=== PATIENT | female | born 1990 | race Caucasian/White ===

== ENCOUNTER 2016-12-15 12:59 | Emergency (ER) | payer SELFPAY ==
[2016-12-15 13:30] VITALS: BP 110/64
--- NOTE | 2016-12-15 15:07 | UC ---
Hand/Wrist HPI - HPI Summary HPI Summary: Has left hand pain after punching a wall. - History Of Current Complaint Chief Complaint: UCUpperExtremity Stated Complaint: LEFT HAND INJURY Time Seen by Provider: 12/15/16 15:01 Hx Obtained From: Patient Hx Last Menstrual Period: 12/12/16 ?: No Onset/Duration: Sudden Onset, Lasting Hours - 1, Still Present Severity Initially: Moderate Severity Currently: Moderate Character Of Pain: Dull, Aching Aggravating Factor(s): Movement, Lifting Alleviating Factor(s): Rest Associated Signs And Symptoms: Positive: Swelling, Numbness/Tingling - at the finger tips. Related History: Dominant Hand Right - Allergies/Home Medications Allergies/Adverse Reactions: Allergies Allergy/AdvReac Type Severity Reaction Status Date / Time Sulfa Antibiotics Allergy Hives Verified 12/15/16 13:30 PMH/Surg Hx/FS Hx/Imm Hx Previously Healthy: Yes - Surgical History Surgical History: Yes Surgery Procedure, Year, and Place: cholecystectomy. nasal - Family History Known Family History: Positive: Cardiac Disease, Diabetes Negative: Hypertension - Social History Occupation: Employed Full-time Lives: With Family Alcohol Use: None Substance Use Type: None Smoking Status (MU): Heavy Every Day Tobacco Smoker Type: Cigarettes Amount Used/How Often: 1/4 pack daily Length of Time of Smoking/Using Tobacco: 10 YRS Have You Smoked in the Last Year: Yes Cessation Counseling: Patient Advised to Stop Review of Systems Musculoskeletal: Arthralgia Neurological: Numbness Is Patient Immunocompromised?: No All Other Systems Reviewed And Are Negative: Yes Physical Exam Triage Information Reviewed: Yes Appearance: Well-Appearing, No Pain Distress, Well-Nourished Vital Signs: Initial Vital Signs Temp 97.9 F 12/15/16 13:25 Pulse 74 12/15/16 13:25 Resp 16 12/15/16 13:25 BP 110/64 12/15/16 13:25 Pulse Ox 99 12/15/16 13:25 Vital Signs Reviewed: Yes Eyes: Positive: Conjunctiva Clear Neck exam: Normal Respiratory Exam: Normal Cardiovascular Exam: Normal Musculoskeletal: Positive: Strength Limited @ - left hand, ROM Limited @ - left 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
--- NOTE | 2016-12-15 15:34 | RAD ---
HISTORY: Left hand trauma COMPARISONS: None VIEWS: 4, Frontal, lateral, and oblique views of the left hand FINDINGS: BONE DENSITY: Normal. BONES: There is no displaced fracture. JOINTS: There is no arthropathy. ALIGNMENT: There is no dislocation. SOFT TISSUES: Unremarkable. OTHER FINDINGS: None. IMPRESSION: NO ACUTE OSSEOUS INJURY. IF SYMPTOMS PERSIST, RECOMMEND REPEAT IMAGING.
== END 2016-12-15 15:24 | disposition home or self-care (01) ==
LOC: UCCORT 12:59
DX: S60.222A Contusion of left hand, initial encounter (principal); F17.210 Nicotine dependence, cigarettes, uncomplicated; W22.09XA Striking against other stationary object, initial encounter; Z88.1 Allergy status to other antibiotic agents
CPT/HCPCS: 99212; G0463

== ENCOUNTER 2017-08-13 10:10 | Emergency (ER) | payer BC ==
[2017-08-13 10:46] VITALS: BP 114/75
--- NOTE | 2017-08-13 11:12 | UC ---
Throat Pain/Nasal Jose HPI - HPI Summary HPI Summary: Left tonsil red swollen with purulence , some fatigue, body aches, headache. No known illness exposures - History of Current Complaint Hx Obtained From: Patient Hx Last Menstrual Period: 07/24/17 ?: No Onset/Duration: Sudden Onset, Lasting Days - 4, Still Present Pain Intensity: 4 Pain Scale Used: 0-10 Numeric Cough: Nonproductive <Josefina Watson - Last Filed: 08/13/17 11:15> <Shannon Horvath - Last Filed: 08/13/17 13:26> - History of Current Complaint Chief Complaint: UCRespiratory Stated Complaint: SORE THROAT FEVER HEADACHE Time Seen by Provider: 08/13/17 10:54 - Allergies/Home Medications Allergies/Adverse Reactions: Allergies Allergy/AdvReac Type Severity Reaction Status Date / Time adhesive Allergy Blisters Verified 08/13/17 10:47 Sulfa (Sulfonamide Allergy Hives Verified 08/13/17 10:47 Antibiotics) PMH/Surg Hx/FS Hx/Imm Hx Previously Healthy: Yes - Surgical History Surgical History: Yes Surgery Procedure, Year, and Place: cholecystectomy. nasal - Family History Known Family History: Positive: None, Cardiac Disease, Diabetes Negative: Hypertension - Social History Occupation: Employed Full-time Lives: With Family Alcohol Use: Rare Substance Use Type: None Smoking Status (MU): Light Every Day Tobacco Smoker Type: Cigarettes Amount Used/How Often: 1/4 pack daily Length of Time of Smoking/Using Tobacco: 10 YRS Have You Smoked in the Last Year: Yes <Josefina Watson - Last Filed: 08/13/17 11:15> Review of Systems Constitutional: Chills, Fatigue Skin: Negative Eyes: Negative ENT: Sore Throat Respiratory: Negative Cardiovascular: Negative Gastrointestinal: Negative Genitourinary: Negative Motor: Negative Neurovascular: Negative Musculoskeletal: Negative Neurological: Headache Psychological: Negative Is Patient Immunocompromised?: No All Other Systems Reviewed And Are Negative: Yes <Josefina Watson - Last Filed: 08/13/17 11:15> Physical Exam Triage Information Reviewed: Yes Appearance: Well-Appearing, No Pain Distress, Well-Nourished Vital Signs: Initial Vital Signs Temp 98.5 F 08/13/17 10:42 Pulse 89 08/13/17 10:42 Resp 18 08/13/17 10:42 BP 114/75 08/13/17 10:42 Pulse Ox 98 08/13/17 10:42 Vital Signs Reviewed: Yes Eye Exam: Normal Eyes: Positive: Conjunctiva Clear ENT Exam: Normal ENT: Positive: Normal ENT inspection, Hearing grossly normal, Pharynx normal, TMs normal, Tonsillar swelling - left, Tonsillar exudate, Uvula midline. Negative: Nasal congestion, Hoarse voice, Dental tenderness, Sinus tenderness Dental Exam: Normal Neck exam: Normal Neck: Positive: Supple, Nontender Respiratory Exam: Normal Respiratory: Positive: Chest non-tender, Lungs clear, Normal breath sounds, No respiratory distress, No accessory muscle use Cardiovascular Exam: Normal Cardiovascular: Positive: RRR, No Murmur, Pulses Normal, Brisk Capillary Refill Musculoskeletal Exam: Normal Musculoskeletal: Positive: Strength Intact, ROM Intact, No Edema Neurological Exam: Normal Neurological: Positive: Alert, Muscle Tone Normal Psychological Exam: Normal Skin Exam: Normal <Josefina Watson - Last Filed: 08/13/17 11:15> Vital Signs: Initial Vital Signs Temp 98.5 F 08/13/17 10:42 Pulse 89 08/13/17 10:42 Resp 18 08/13/17 10:42 BP 114/75 08/13/17 10:42 Pulse Ox 98 08/13/17 10:42 <Shannon Horvath - Last Filed: 08/13/17 13:26> Diagnostics - Laboratory Diagnostic Studies Completed/Ordered: RST (-) <Josefina Watson - Last Filed: 08/13/17 11:15> Throat Pain/Nasal Course/Dx - Course Assessment/Plan: Clindamycin, Tylenol ibuprofen, warm gargles, follow with the care clinic her PCP as needed recheck when necessary - Differential Dx/Diagnosis Provider Diagnoses: Tonsillitis, nicotine dependence <Josefina Watson - Last Filed: 08/13/17 11:15> Discharge - Sign-Out/Discharge Documenting (check all that apply): Discharge/Admit/Transfer - Billing Disposition and Condition Condition: STABLE Disposition: Home <Josefina Watson Last Filed: 08/13/17 11:15> - Billing Disposition and Condition Condition: STABLE Disposition: Home <Shannon Horvath - Last Filed: 08/13/17 13:26> - Discharge Plan Condition: Stable Disposition: HOME Prescriptions: Clindamycin Cap(NF) [Clindamycin Cap 300 mg Cap(NF)] 300 mg PO TID #30 cap Patient Education Materials: Tonsillitis (ED) Referrals: [facility] [Outside] - If Needed [facility] [Outside] - If Needed Attestation Statement User Type: Provider - I was available for consult. This patient was seen by the PAU. The patient was not presented to, seen by, or examined by me. -Shelbi <Shannon Horvath - Last Filed: 08/13/17 13:26>
== END 2017-08-13 11:20 | disposition home or self-care (01) ==
LOC: UCEAST 10:10
DX: J03.90 Acute tonsillitis, unspecified (principal); F17.210 Nicotine dependence, cigarettes, uncomplicated; R53.83 Other fatigue; Z88.2 Allergy status to sulfonamides; Z91.09 Other allergy status, other than to drugs and biological substances
CPT/HCPCS: 87651; 99212; G0463

== ENCOUNTER 2017-09-01 15:51 | Emergency (ER) | payer BC ==
[2017-09-01 16:10] VITALS: BP 131/87
--- NOTE | 2017-09-01 17:23 | UC ---
Medardo Figueroa Elizabeth, scribed for Amado Phillips MD on 09/01/17 at 1612 . Throat Pain/Nasal Jose HPI - HPI Summary HPI Summary: This patient is a 26 year old F presenting to [facility] with a chief complaint of chest congestion since 3 days ago. The patient rates the pain 6/10 in severity. Symptoms aggravated by nothing. Symptoms alleviated by nothing. Patient reports productive cough with yellowish sputum, sore throat, and sinus pressure Patient denies wheezing. The patient notes that she recently had tonsillitis and just finished 14 days of abx 4 days ago. She says she felt better for a day after the abx ended but then started feeling unwell again. - History of Current Complaint Stated Complaint: CHEST CONGESTION Time Seen by Provider: 09/01/17 16:02 Hx Obtained From: Patient Hx Last Menstrual Period: 07/24/17 Onset/Duration: Gradual Onset, Lasting Days - 3 days, Still Present Severity: Mild Pain Intensity: 6 Pain Scale Used: 0-10 Numeric Cough: Sputum Appears - yellowish Associated Signs & Symptoms: Positive: Sinus Discomfort - Allergies/Home Medications Allergies/Adverse Reactions: Allergies Allergy/AdvReac Type Severity Reaction Status Date / Time adhesive Allergy Blisters Verified 08/13/17 10:47 Sulfa (Sulfonamide Allergy Hives Verified 08/13/17 10:47 Antibiotics) PMH/Surg Hx/FS Hx/Imm Hx Other Respiratory History: no hx of asthma - Surgical History Surgical History: Yes Surgery Procedure, Year, and Place: cholecystectomy. nasal - Family History Known Family History: Positive: None, Cardiac Disease, Diabetes, Other - asthma Negative: Hypertension Family History: asthma - Social History Alcohol Use: Rare Substance Use Type: None Smoking Status (MU): Light Every Day Tobacco Smoker Type: Cigarettes Amount Used/How Often: 1/4 pack daily Length of Time of Smoking/Using Tobacco: 10 YRS Have You Smoked in the Last Year: Yes Review of Systems ENT: Sore Throat, Sinus Congestion Respiratory: Negative - negative wheezing, Cough Cardiovascular: Other - chest congestion Neurological: Negative - negative headache All Other Systems Reviewed And Are Negative: Yes Physical Exam - Summary Physical Exam Summary: General: well-appearing, no pain distress Skin: warm, color reflects adequate perfusion, dry Head: normal Eyes: EOMI, CASSY ENT: positive rhinorrhea, positive pharynx erythema Neck: nontender, positive anterior cervical lymphadenopathy Respiratory: CTA, breath sounds present Cardiovascular: RRR Abdomen: soft, nontender Bowel: present Musculoskeletal: normal, strength/ROM intact Neurological: sensory/motor intact, A&O x3 Psychological: affect/mood appropriate Triage Information Reviewed: Yes Vital Signs: Initial Vital Signs Temp 97.4 F 09/01/17 16:02 Pulse 84 09/01/17 16:02 Resp 16 09/01/17 16:02 BP 131/87 09/01/17 16:02 Pulse Ox 99 09/01/17 16:02 Vital Signs Reviewed: Yes Throat Pain/Nasal Course/Dx - Course Course Of Treatment: PATIENT REPORTS SHE DID NOT FULLY GET WELL AFTER HER LAST URI/SINUSITIS. RX AUGMENTIN. ALSO ENCOURAGED OTC ANTIHISTAMINES, SALINE NASAL SPRAY/NETI POT. F/U PMD; RECHECK SOONER IF WORSE. - Differential Dx/Diagnosis Provider Diagnoses: SINUSITIS Discharge - Sign-Out/Discharge Documenting (check all that apply): Discharge/Admit/Transfer - Discharge Plan Condition: Stable Disposition: HOME Discharge Disposition Comment: discharge home Prescriptions: Amoxicillin/Clavulanate TAB* [Augmentin TAB 875*] 875 mg PO BID #20 tab Patient Education Materials: Sinusitis (ED) Referrals: [facility]FERR[facility] [Outside] Additional Instructions: FOLLOW UP WITH YOUR DOCTOR. GET RECHECKED FOR ANY WORSENING OF YOUR CONDITION OR QUESTIONS OR CONCERNS. - Billing Disposition and Condition Condition: STABLE Disposition: Home The documentation as recorded by the Medardo huerta Elizabeth accurately reflects the service I personally performed and the decisions made by me, Amado Phillips MD.
== END 2017-09-01 16:15 | disposition home or self-care (01) ==
LOC: UCEAST 15:51
DX: J32.9 Chronic sinusitis, unspecified (principal); Z88.2 Allergy status to sulfonamides; Z91.048 Other nonmedicinal substance allergy status; Z82.5 Family history of asthma and other chronic lower respiratory diseases; F17.210 Nicotine dependence, cigarettes, uncomplicated
CPT/HCPCS: 99212; G0463